=== PATIENT | female | born 1945 | race Caucasian/White ===

== ENCOUNTER 2024-10-24 12:58 | Outpatient (CLI) | payer MEDICARE, MEDICAID, SELFPAY ==
[2024-10-24 14:00] VITALS: PULSE 60; PULSE 62
[2024-10-24] MEDS: ALBUTEROL 0.083% 2.5 MG/3 ML NEB IH (14:00)
--- NOTE | 2024-10-24 14:12 | PC.NURSE ---
Pt unable to do 6MWT walk test due to stroke and knee problems
--- NOTE | 2024-10-24 14:28 | CT_ITS ---
FINAL REPORT TECHNIQUE: Axial images were obtained from the lung apex to the mid abdomen by computed tomography. Supine inspiration high-resolution images only were obtained. Coronal and sagittal reformatted images were obtained. This study was performed with techniques to keep radiation doses as low as reasonably achievable, (ALARA). Individualized dose reduction techniques using automated exposure control or adjustment of mA and/or kV according to the patient''s size were employed. CLINICAL HISTORY: Shortness of breath HIGH RES CHEST COMPARISON: None FINDINGS: No mediastinal mass or adenopathy is identified. No axillary mass or adenopathy is seen. There are severe left coronary artery calcifications. There is no pericardial or pleural effusion. Mild diffuse bronchial wall thickening is noted. There is right lower lobe atelectasis/scar with mild bronchiectasis in this region. Mild scarring is noted in the left lung base. There are several small pulmonary nodules bilaterally, some of which are calcified. There is a 5 mm posterior right upper lobe nodule on series 2, image 23 and a 5 mm nodule in the lingula on series 2, image 34. Other small nodules are seen as well. The chest wall is intact.Limited images of the upper abdomen are unremarkable. IMPRESSION: Small bilateral pulmonary nodules as above. Mild diffuse bronchial wall thickening. Mild bronchiectasis right lower lobe. Reviewed, Interpreted and Dictated by Robi Cobos III, MD Transcribed by Cathy Dalton Authenticated and [facility]
== END 2024-10-24 23:59 | disposition home or self-care (01) ==
PROVIDERS: PCP Family Medicine; Visit Provider Internal Medicine Pulmonary Disease
DX: J84.9 Interstitial pulmonary disease, unspecified (principal); R06.09 Other forms of dyspnea
CPT/HCPCS: 71250; 94060; 94640; 94726; 94729; J7613